=== PATIENT | female | born 1995 | race Caucasian/White ===

== ENCOUNTER 2019-12-24 17:19 | Outpatient (CLI) | payer SELFPAY ==
[~2019-12-24] VITALS: Ht 170.2 cm; Wt 75.5 kg
[2019-12-24 17:54] VITALS: BP 101/67
== END 2019-12-24 19:10 | disposition home or self-care (01) ==
LOC: LDOP 17:19
PROVIDERS: ATTEND Obstetrics & Gynecology
DX: O26.893 Other specified pregnancy related conditions, third trimester (principal); R10.9 Unspecified abdominal pain; Z3A.34 34 weeks gestation of pregnancy
CPT/HCPCS: 59025; 99211; G0463

== ENCOUNTER 2020-02-06 17:24 | Outpatient (CLI) | payer SELFPAY ==
[2020-02-06 18:05] VITALS: BP 98/63
== END 2020-02-06 18:33 | disposition home or self-care (01) ==
LOC: LDOP 17:24
PROVIDERS: ATTEND Obstetrics & Gynecology
DX: O62.8 Other abnormalities of forces of labor (principal); Z3A.40 40 weeks gestation of pregnancy
CPT/HCPCS: 59025; 99201; G0463

== ENCOUNTER 2020-02-09 08:34 | Inpatient (IN) | payer MEDICAID, OTHER ==
[~2020-02-09] VITALS: Ht 167.6 cm; Wt 81.8 kg
[2020-02-09] MEDS ORDERED: OXYTOCIN 30U/ 0.9% NaCL 500ML 500 ML IV ONE (09:15)
[2020-02-09] MEDS ORDERED: D5%-LACTATED RINGERS 1,000 ML IV SCH (09:15)
[2020-02-09] MEDS ORDERED: LIDOCAINE 1%, 20ML ONE (09:25)
[2020-02-09] MEDS ORDERED: NEWBORN KIT ONE (09:25)
[2020-02-09] MEDS ORDERED: OXYTOCIN 30U/ 0.9% NaCL 500ML 500 ML ONE (09:26)
[2020-02-09] MEDS ORDERED: MISOPROSTOL 200 MCG TABLET ONE (09:26)
[2020-02-09] MEDS ORDERED: SODIUM CITRATE/CITRIC ACID 30 ML UDC PO PRN (09:30)
[2020-02-09] MEDS ORDERED: ONDANSETRON 2MG/ML, 2ML IVPush PRN (09:30)
[2020-02-09] MEDS ORDERED: METOCLOPRAMIDE 5 MG/ML, 2ML IVPush PRN (09:30)
[2020-02-09] MEDS ORDERED: FENTANYL PF 100 MCG/2ML IVPush PRN (09:30)
[2020-02-09] MEDS ORDERED: TERBUTALINE 1 MG/ML, 1ML IVPush PRN (09:30)
[2020-02-09] MEDS ORDERED: PENICILLIN GK 5,000,000 UNITS in DEXTROSE 5% 100 ML IVPB ONE (09:30)
[2020-02-09] MEDS ORDERED: TERBUTALINE 1 MG/ML, 1ML SQ PRN (09:30)
[2020-02-09] MEDS ORDERED: FENTANYL PF 100 MCG/2ML IV PRN (09:30)
[2020-02-09] MEDS: LACTATED RINGERS 1,000 ML IV SCH ×2 (09:36→22:05)
[2020-02-09 10:04] VITALS: BP 99/58
[2020-02-09 10:07] LABS: BASOPHILS # (AUTO) 0.01 x10^3/uL (0-0.1); BASOPHILS % (AUTO) 0 % (0-1); EOSINOPHILS # (AUTO) 0.11 x10^3/uL (0-0.4); EOSINOPHILS % (AUTO) 1 % (1-7); LYMPHOCYTES # (AUTO) 2.24 x10^3/uL (1-3.4); LYMPHOCYTES % (AUTO) 19 % (22-44); MD NO; MEAN CORPUSCULAR HEMOGLOBIN 32.8 pg (27.0-34.8); MEAN CORPUSCULAR HGB CONC 33.9 g/dL (32.4-35.8); MEAN CORPUSCULAR VOLUME 96.7 fL (80-100); MEAN PLATELET VOLUME 8.8 fL (7.4-10.4); MONOCYTES # (AUTO) 1.02 x10^3/uL (0.2-0.8); MONOCYTES % (AUTO) 9 % (2-9); NEUTROPHILS # (AUTO) 8.51 x10^3/uL (1.8-6.8); NEUTROPHILS % (AUTO) 72 % (42-75); PLATELET COUNT 211 x10^3/uL (130-400); RED BLOOD COUNT 3.73 x10^6/uL (3.82-5.3); RED CELL DISTRIBUTION WIDTH 14.3 % (9.6-15.2)
[2020-02-09] MEDS ORDERED: OXYTOCIN 30U/ 0.9% NaCL 500ML 500 ML IV PRN (12:39)
[2020-02-09] MEDS ORDERED: LACTATED RINGERS 1,000 ML IVBOLUS PRN (13:00)
[2020-02-09] MEDS ORDERED: FENTANYL/BUPIV./NS/PF 250 ML EPIDCONT ONE (13:00)
[2020-02-09] MEDS ORDERED: FENTANYL PF 500 MCG, BUPIVACAINE/PF 0.5%, 30ML 62.5 ML in SODIUM CHLORIDE 0.9% 177.5 ML EPIDCONT SCH (13:30)
[2020-02-09] MEDS: PENICILLIN GK 2,500,000 UNITS in DEXTROSE 5% 100 ML IVPB SCH ×3 (13:56→22:26)
[2020-02-09] MEDS ORDERED: ONDANSETRON 2MG/ML, 2ML ONE (20:13)
[2020-02-10] MEDS ORDERED: BUPIVACAINE 0.25% ONE (00:09)
[2020-02-10] MEDS ORDERED: LIDOCAINE/PF 1.5%-EPI 1:200K, 30ML ONE (00:15)
[2020-02-10] MEDS ORDERED: FENTANYL/BUPIV./NS/PF 250 ML EPIDCONT SCH (00:36)
[2020-02-10] MEDS ORDERED: LACTATED RINGERS 1,000 ML IV SCH (00:36)
[2020-02-10] MEDS ORDERED: EPHEDRINE 50 MG/ML, 1ML ONE (00:46)
[2020-02-10] MEDS ORDERED: EPHEDRINE 50 MG/ML, 1ML IVPush PRN (01:00)
[2020-02-10] MEDS ORDERED: LACTATED RINGERS 1,000 ML IVBOLUS PRN (01:00)
[2020-02-10] MEDS: PENICILLIN GK 2,500,000 UNITS in DEXTROSE 5% 100 ML IVPB SCH ×2 (02:13→06:27)
[2020-02-10] MEDS ORDERED: OXYTOCIN 30U/ 0.9% NaCL 500ML 500 ML ONE (09:38)
[2020-02-10] MEDS ORDERED: MISOPROSTOL 200 MCG TABLET PR ONE (10:30)
[2020-02-10] MEDS: OXYTOCIN 30U/ 0.9% NaCL 500ML 500 ML IV SCH ×2 (10:38→20:38)
[2020-02-10] MEDS ORDERED: NEWBORN KIT ONE (10:54)
[2020-02-10] MEDS ORDERED: METHYLERGONOVINE 0.2 MG/ML IM PRN (11:00)
[2020-02-10] MEDS ORDERED: ACETAMINOPHEN 325 MG TABLET PO PRN (11:00)
[2020-02-10] MEDS ORDERED: CARBOPROST TROMETHAMINE 250 MCG/ML, 1ML IM PRN (11:00)
[2020-02-10] MEDS ORDERED: OXYTOCIN 10 UNITS/ML, 1ML IM PRN (11:00)
[2020-02-10] MEDS ORDERED: ONDANSETRON 2MG/ML, 2ML IV PRN (11:00)
[2020-02-10] MEDS ORDERED: SIMETHICONE 80 MG CHEW TAB PO PRN (11:00)
[2020-02-10] MEDS ORDERED: DOCUSATE 100 MG CAPSULE PO PRN (11:00)
[2020-02-10] MEDS ORDERED: OXYcodone/APAP 5/325MG TABLET PO PRN ×2 (11:00)
[2020-02-10] MEDS ORDERED: MISOPROSTOL 200 MCG TABLET PR PRN (11:00)
[2020-02-10] MEDS ORDERED: IBUPROFEN 600 MG TABLET ONE (12:55)
[2020-02-10] MEDS: IBUPROFEN 600 MG TABLET PO PRN ×2 (12:56→22:24)
[2020-02-10 14:32] VITALS: BP 105/68
[2020-02-10] MEDS ORDERED: FENTANYL PF 100 MCG/2ML IVPush PRN (17:30)
[2020-02-10 18:16] LABS: MEAN CORPUSCULAR HEMOGLOBIN 32.6 pg (27.0-34.8); MEAN CORPUSCULAR HGB CONC 34.1 g/dL (32.4-35.8); MEAN CORPUSCULAR VOLUME 95.8 fL (80-100); MEAN PLATELET VOLUME 8.9 fL (7.4-10.4); PLATELET COUNT 213 x10^3/uL (130-400); RED BLOOD COUNT 3.48 x10^6/uL (3.82-5.3); RED CELL DISTRIBUTION WIDTH 14.3 % (9.6-15.2)
[2020-02-10 18:54] LABS: MD YES
[2020-02-10 19:03] LABS: BAND#(MANUAL) 6.02 x10^3/uL; BANDS%(MANUAL) 24 % (0-7); EOS#(MANUAL) 0.25 x10^3/uL (0.0-0.4); EOS% (MANUAL) 1 % (1-7); LYMPH#(MANUAL) 1.76 x10^3/uL (1-3.4); LYMPHS% (MANUAL) 7 % (22-44); MONOS% (MANUAL) 2 % (2-9); SEG#(MANUAL) 16.57 x10^3/uL (1.8-6.8); SEGS% (MANUAL) 66 % (42-75)
[2020-02-10 19:06] LABS: <PLATELET ESTIMATE> ADEQUATE; <PLT MORPHOLOGY> NORMAL PLT MORPH; <RBC MORPHOLOGY> NORMAL
[2020-02-10 20:40] VITALS: BP 108/66
[2020-02-11 00:30] VITALS: BP 100/58
[2020-02-11 04:40] VITALS: BP 97/65
[2020-02-11 08:10] VITALS: BP 100/62
[2020-02-11] MEDS ORDERED: PRENATAL VIT/IRON/FA 1 EACH TABLET PO SCH (09:00)
[2020-02-11 21:00] VITALS: BP 110/71
[2020-02-12 01:00] VITALS: BP 105/66
[2020-02-12 08:00] VITALS: BP 128/72
[2020-02-12] MEDS ORDERED: DOCU-131 PO (08:42)
[2020-02-12] MEDS ORDERED: IBUP-1222 PO (08:43)
[2020-02-12] MEDS ORDERED: OXYC-302 PO (08:44)
[2020-02-12] MEDS ORDERED: DIPH,PERTUSS(ACELL),TET VAC/PF NC IM-VACC ONE (10:01)
[2020-02-12] MEDS: IBUPROFEN 600 MG TABLET PO PRN (18:41)
== END 2020-02-12 18:00 | disposition home or self-care (01) | DRG 807 ==
LOC: LDOP 08:34 → LDIP 09:15 → 2NW 02-10 12:43
PROVIDERS: ADMIT Obstetrics & Gynecology; ATTEND Obstetrics & Gynecology
PROC: 0KQM0ZZ Repair Perineum Muscle, Open Approach (ICD-10-PCS; principal; 2020-02-10)
PROC: 10E0XZZ Delivery of Products of Conception, External Approach (ICD-10-PCS; 2020-02-10)
DX: O99.824 Streptococcus B carrier state complicating childbirth (principal); Z37.0 Single live birth; Z3A.40 40 weeks gestation of pregnancy; B95.1 Streptococcus, group B, as the cause of diseases classified elsewhere; O48.0 Post-term pregnancy; O69.81X0 Labor and delivery complicated by cord around neck, without compression, not applicable or unspecified; O70.1 Second degree perineal laceration during delivery; Z3A.41 41 weeks gestation of pregnancy
CPT/HCPCS: 36415; S0020; 85025; 86592; 86850; 86900; 87070; 87075; 87205; G0378; J2405; J2540; J3010; J2590; J7050; J7120